=== PATIENT | male | born 1935 | race Caucasian/White ===

== ENCOUNTER → 2017-05-01 | Outpatient (CLI) | payer MEDICARE, OTHER ==
[~2017-05-01] MED LIST: ALPR0.02 PO; ATEN100T PO; BUSP5TAB2 PO; CILO100T PO; ESOM40CA PO; FINA5TAB PO; HYDR12.53 PO; LISI40TA PO; METF-86 PO; PRED10TA14 PO; SILD100T PO; SIMV80TA3 PO; TAMS0.4C2 PO; VISIPAQUE 270 MG/ML, 50ML BOTTLE ONE
== END | disposition home or self-care (01) ==
LOC: RAD 07:17 → EDSTATUS 08:00
PROVIDERS: ATTEND Urology
DX: N13.1 Hydronephrosis with ureteral stricture, not elsewhere classified (principal); N13.5 Crossing vessel and stricture of ureter without hydronephrosis; Z93.6 Other artificial openings of urinary tract status
CPT/HCPCS: 50435; C1729; C1769; Q9966

== ENCOUNTER → 2017-08-01 | Outpatient (CLI) | payer MEDICARE, OTHER ==
[~2017-08-01] MED LIST changes: +LIDOCAINE 1%, 20ML ONE; +METF-162 PO; -METF-86 PO; -VISIPAQUE 270 MG/ML, 50ML BOTTLE ONE
== END | disposition home or self-care (01) ==
LOC: RAD 07:18
PROVIDERS: ATTEND Urology
DX: N13.30 Unspecified hydronephrosis (principal); R35.0 Frequency of micturition; N13.5 Crossing vessel and stricture of ureter without hydronephrosis
CPT/HCPCS: 50435; C1729; C1769; J3490

== ENCOUNTER → 2017-10-21 | Outpatient (CLI) | payer MEDICARE, OTHER ==
[~2017-10-21] MED LIST changes: +VISIPAQUE 270 MG/ML, 50ML BOTTLE ONE
== END | disposition home or self-care (01) ==
LOC: RAD 07:49 → EDSTATUS 08:00
PROVIDERS: ATTEND Physician Assistant
DX: N39.0 Urinary tract infection, site not specified (principal); N13.30 Unspecified hydronephrosis
CPT/HCPCS: 50435; C1729; C1769; Q9966; J3490

== ENCOUNTER → 2018-01-20 | Outpatient (CLI) | payer MEDICARE, OTHER ==
[~2018-01-20] MED LIST changes: -LIDOCAINE 1%, 20ML ONE; -VISIPAQUE 270 MG/ML, 50ML BOTTLE ONE; +VISIPAQUE 320MG/ML, 50ML BOTTLE ONE
== END | disposition home or self-care (01) ==
LOC: RAD 08:45 → EDSTATUS 09:00
PROVIDERS: ATTEND Physician Assistant
DX: N13.1 Hydronephrosis with ureteral stricture, not elsewhere classified (principal); N39.0 Urinary tract infection, site not specified
CPT/HCPCS: 50435; C1729; C1769; Q9967

== ENCOUNTER 2018-02-12 19:20 | Emergency (ER) | payer MEDICARE, OTHER ==
[~2018-02-12] VITALS: Ht 175.3 cm; Wt 81.9 kg
[~2018-02-12 19:20] MED LIST changes: -VISIPAQUE 320MG/ML, 50ML BOTTLE ONE
[2018-02-12 19:58] LABS: BASOPHILS # (AUTO) 0.11 x10^3/uL (0-0.1); BASOPHILS % (AUTO) 1 % (0-1); EOSINOPHILS # (AUTO) 0.09 x10^3/uL (0-0.4); EOSINOPHILS % (AUTO) 1 % (1-7); LYMPHOCYTES # (AUTO) 1.17 x10^3/uL (1-3.4); LYMPHOCYTES % (AUTO) 10 % (22-44); MD NO; MEAN CORPUSCULAR HEMOGLOBIN 32.5 pg (27.5-34.5); MEAN CORPUSCULAR HGB CONC 34.8 g/dL (33.2-36.2); MEAN CORPUSCULAR VOLUME 93.3 fL (81-97); MEAN PLATELET VOLUME 8.3 fL (7.4-10.4); MONOCYTES # (AUTO) 1.12 x10^3/uL (0.2-0.8); MONOCYTES % (AUTO) 10 % (2-9); NEUTROPHILS # (AUTO) 9.17 x10^3/uL (1.8-6.8); NEUTROPHILS % (AUTO) 79 % (42-75); PLATELET COUNT 162 x10^3/uL (130-400)
[2018-02-12] MEDS ORDERED: IPRA4AER INH (20:08)
[2018-02-12] MEDS ORDERED: DOXA2TAB9 PO (20:08)
[2018-02-12] MEDS ORDERED: UMEC1DIS INH (20:08)
[2018-02-12] MEDS ORDERED: TAMS-11 PO (20:08)
[2018-02-12] MEDS ORDERED: HYDR-3240 PO (20:08)
[2018-02-12] MEDS ORDERED: CHOL2000 PO (20:08)
[2018-02-12] MEDS ORDERED: FLUN25SP NAS (20:08)
[2018-02-12] MEDS ORDERED: SILD100T PO (20:08)
[2018-02-12] MEDS ORDERED: OMEP40CA6 PO (20:08)
[2018-02-12] MEDS ORDERED: LISI40TA PO (20:08)
[2018-02-12 20:09] LABS: ALBUMIN 3.4 g/dL (3.4-5.0); ANION GAP 8 mmol/L (5-15); CALCIUM 8.4 mg/dL (8.5-10.1); CHLORIDE 109 mmol/L (98-107); CREATININE 1.27 mg/dL (0.7-1.3)
[2018-02-12 20:13] LABS: TROPONIN I < 0.015 ng/mL (0.000-0.045)
[2018-02-12] MEDS ORDERED: ATOR40TA PO (20:40)
[2018-02-12 21:40] VITALS: BP 164/71
== END 2018-02-12 21:52 | disposition home or self-care (01) ==
LOC: ED 21:40
DX: R42 Dizziness and giddiness (principal); I10 Essential (primary) hypertension
CPT/HCPCS: 36415; 71046; 80048; 82040; 84484; 85025; 93005; 99285

== ENCOUNTER → 2018-08-06 | Outpatient (CLI) | payer MEDICARE, OTHER ==
[~2018-08-06] MED LIST changes: +ATOR40TA PO; +CHOL2000 PO; +DOXA2TAB9 PO; +FLUN25SP NAS; +HYDR-3240 PO; +HYDR25TA11 PO; +IPRA4AER INH; +OMEP40CA6 PO; -SIMV80TA3 PO; +SIMV80TA7 PO; +TAMS-11 PO; +UMEC1DIS INH
== END | disposition home or self-care (01) ==
LOC: RAD 08:27
PROVIDERS: ATTEND Urology
DX: N13.5 Crossing vessel and stricture of ureter without hydronephrosis (principal); Z87.891 Personal history of nicotine dependence; Z88.5 Allergy status to narcotic agent; Z88.1 Allergy status to other antibiotic agents
CPT/HCPCS: 50435; C1729; C1769

== ENCOUNTER 2019-01-26 07:18 | Outpatient (CLI) | payer MEDICARE, OTHER ==
[~2019-01-26 07:18] MED LIST changes: +HYDR12.517 PO; -HYDR12.53 PO; +SIMV80TA18 PO; -SIMV80TA7 PO
[2019-01-26] MEDS ORDERED: LIDOCAINE-MPF 1%, 5ML ONE (08:06)
[2019-01-26] MEDS ORDERED: VISIPAQUE 270 MG/ML, 50ML BOTTLE ONE (08:51)
== END 2019-01-26 23:59 | disposition home or self-care (01) ==
LOC: RAD 07:18
PROVIDERS: ATTEND Physician Assistant
DX: N13.5 Crossing vessel and stricture of ureter without hydronephrosis (principal)
CPT/HCPCS: 50435; C1729; C1769; Q9966

== ENCOUNTER 2019-09-10 06:32 | Outpatient (CLI) | payer MEDICARE, OTHER ==
[~2019-09-10 06:32] MED LIST changes: +HYDR-826 PO; -HYDR25TA11 PO
== END 2019-09-10 23:59 | disposition home or self-care (01) ==
LOC: CVU 06:32
PROVIDERS: ATTEND Surgery
DX: Z01.818 Encounter for other preprocedural examination (principal); I73.9 Peripheral vascular disease, unspecified
CPT/HCPCS: 93922; 93925

== ENCOUNTER → 2019-10-27 | Outpatient (CLI) | payer MEDICARE, OTHER ==
[~2019-10-27] MED LIST changes: +OMEP40CA42 PO; -OMEP40CA6 PO
== END | disposition home or self-care (01) ==
LOC: RAD 07:54 → EDSTATUS 08:00
PROVIDERS: ATTEND Physician Assistant
DX: N13.5 Crossing vessel and stricture of ureter without hydronephrosis (principal)
CPT/HCPCS: 50435; C1729; C1769

== ENCOUNTER 2020-02-10 09:51 | Outpatient (CLI) | payer MEDICARE, OTHER ==
[2020-02-10] MEDS ORDERED: VISIPAQUE 270 MG/ML, 50ML BOTTLE ONE (10:36)
== END 2020-02-10 23:59 | disposition home or self-care (01) ==
LOC: RAD 09:51
PROVIDERS: ATTEND Physician Assistant
DX: T83.092A Other mechanical complication of nephrostomy catheter, initial encounter (principal); N13.5 Crossing vessel and stricture of ureter without hydronephrosis; Y83.8 Other surgical procedures as the cause of abnormal reaction of the patient, or of later complication, without mention of misadventure at the time of the procedure
CPT/HCPCS: 50435; C1729; C1769; Q9966

== ENCOUNTER 2020-05-15 11:30 | Inpatient (IN) | payer MEDICARE, OTHER ==
[~2020-05-15] VITALS: Ht 170.2 cm; Wt 72.0 kg
[2020-05-15] MEDS ORDERED: methylPREDNISolone SOD SUCC 125 MG/2 ML ONE (12:29)
[2020-05-15] MEDS ORDERED: NITROGLYCERIN OINT 2%, 1GM TP ONE ×2 (12:30→12:31)
[2020-05-15] MEDS ORDERED: methylPREDNISolone SOD SUCC 125 MG/2 ML IV ONE (12:30)
[2020-05-15] MEDS ORDERED: NITROGLYCERIN SINGLE TAB 0.4 MG SL ONE (12:31)
[2020-05-15 12:35] LABS: BASOPHILS # (AUTO) 0.41 x10^3/uL (0-0.1); BASOPHILS % (AUTO) 4 % (0-1); EOSINOPHILS # (AUTO) 0.08 x10^3/uL (0-0.4); EOSINOPHILS % (AUTO) 1 % (1-7); LYMPHOCYTES # (AUTO) 1.34 x10^3/uL (1-3.4); LYMPHOCYTES % (AUTO) 12 % (22-44); MD NO; MEAN CORPUSCULAR HEMOGLOBIN 28.8 pg (27.5-34.5); MEAN CORPUSCULAR HGB CONC 32.6 g/dL (33.2-36.2); MEAN CORPUSCULAR VOLUME 88.2 fL (81-97); MEAN PLATELET VOLUME 8.1 fL (7.4-10.4); MONOCYTES # (AUTO) 0.44 x10^3/uL (0.2-0.8); MONOCYTES % (AUTO) 4 % (2-9); NEUTROPHILS # (AUTO) 8.75 x10^3/uL (1.8-6.8); NEUTROPHILS % (AUTO) 79 % (42-75); PLATELET COUNT 242 x10^3/uL (130-400); RED BLOOD COUNT 4.11 x10^6/uL (4.38-5.82); RED CELL DISTRIBUTION WIDTH 16.7 % (9.4-14.8)
[2020-05-15 12:45] LABS: ALBUMIN 2.8 g/dL (3.4-5.0); ANION GAP 4 mmol/L (5-15); CALCIUM 8.6 mg/dL (8.5-10.1); CHLORIDE 109 mmol/L (98-107); CREATININE 1.27 mg/dL (0.7-1.3)
[2020-05-15] MEDS: NITROGLYCERIN SINGLE TAB 0.4 MG SL PRN (12:45)
[2020-05-15 12:49] LABS: TROPONIN I 0.109 ng/mL (0.000-0.045)
--- NOTE | 2020-05-15 12:57 | NUR ---
PT MEDICATED PER EMAR. CONNECTED TO ALL MONITORING, PT CONVERSING W/O DIFFICULTY. AT BEDSIDE FOR RECHECK.
[2020-05-15] MEDS ORDERED: ADENOSINE 6 MG/2 ML ONE (13:03)
[2020-05-15] MEDS ORDERED: DILTIAZEM 125 MG in SODIUM CHLORIDE 0.9% 100 ML IV SCH (13:11)
[2020-05-15] MEDS ORDERED: DILTIAZEM 5 MG/ML, 5ML ONE (13:11)
--- NOTE | 2020-05-15 13:22 | NUR ---
AT BEDSIDE. CRASH CART IN ROOM. PADS PLACED ON PT. AMIODARONE DRIPO ORDERED FROM PHARM PER VERBAL ORDER. NITRO DRIP VERBAL FROM
[2020-05-15] MEDS ORDERED: NITROGLYCERIN/D5W PMX 250 ML ONE (13:23)
--- NOTE | 2020-05-15 13:24 | NUR ---
PER MD NITRO DRIP INITIATED TO ACHIEVE SYSTOLIC BP OF 120 TO 140
[2020-05-15] MEDS ORDERED: DILTIAZEM 5 MG/ML, 5ML IV ONE (13:30)
[2020-05-15] MEDS ORDERED: FILTER 0.22 MICRON IV PRN ×2 (13:30→15:30)
[2020-05-15] MEDS ORDERED: ADENOSINE 6 MG/2 ML IVPush ONE (13:30)
[2020-05-15] MEDS ORDERED: AMIODARONE 450 MG in DEXTROSE 5% 241 ML IV PRN ×3 (13:30→15:12)
--- NOTE | 2020-05-15 13:49 | NUR ---
PER MD ORDER NITRO TO BE INITIATED AT 20 MCG
--- NOTE | 2020-05-15 13:50 | NUR ---
MD AT BEDSIDE INCREASE NITRO TO 50 MCG
[2020-05-15] MEDS ORDERED: FUROSEMIDE 40 MG/4 ML ONE (13:52)
--- NOTE | 2020-05-15 13:57 | NUR ---
TRAMAINE CABALLERO NUMBER [id number]. CELL [phone]
[2020-05-15] MEDS ORDERED: NITROGLYCERIN/D5W PMX 250 ML IV PRN ×2 (14:00→17:00)
[2020-05-15] MEDS ORDERED: FILTER 0.22 MICRON FOR AMIODARONE IV PRN (14:00)
[2020-05-15] MEDS ORDERED: AMIODARONE 150 MG in DEXTROSE 5% 97 ML IV ONE (14:00)
[2020-05-15] MEDS ORDERED: FUROSEMIDE 20 MG/2 ML IV ONE (14:00)
--- NOTE | 2020-05-15 14:14 | NUR ---
MD AT BEDSIDE. VERBAL ORDER TO INCREASE NITRO TO 85 MCG
[2020-05-15] MEDS ORDERED: ONDANSETRON 2MG/ML, 2ML IVPush PRN (15:00)
[2020-05-15] MEDS ORDERED: HYDROcodone/APAP 5/325 TABLET PO PRN (15:00)
[2020-05-15] MEDS ORDERED: BISACODYL 10 MG SUPP PR PRN (15:00)
[2020-05-15] MEDS ORDERED: POLYETHYLENE GLYCOL 17 GM PACKET PO PRN (15:00)
[2020-05-15] MEDS ORDERED: ENALAPRILAT 1.25 MG/ML, 2ML IVPush PRN (15:00)
[2020-05-15] MEDS ORDERED: ACETAMINOPHEN 325 MG TABLET PO PRN (15:00)
[2020-05-15] MEDS ORDERED: LABETALOL 5MG/ML, 20ML IVPush PRN (15:00)
[2020-05-15] MEDS ORDERED: FUROSEMIDE 40 MG/4 ML IV ONE (15:42)
[2020-05-15] MEDS ORDERED: AMIODARONE 150 MG in DEXTROSE 5% 97 ML IVPB ONE (15:45)
[2020-05-15] MEDS ORDERED: IPRATROPIUM 0.5 MG/2.5 ML INHA NPPB PRN (16:00)
[2020-05-15] MEDS ORDERED: ALBUTEROL/IPRATROPIUM 2.5MG/0.5MG, 3 ML NPPB PRN (16:00)
[2020-05-15] MEDS: ENOXAPARIN 40 MG/0.4 ML SQ SCH (16:21)
[2020-05-15] MEDS ORDERED: AMIODARONE 50 MG/ML, 3ML ONE (18:03)
[2020-05-15 18:42] LABS: TROPONIN I 0.156 ng/mL (0.000-0.045)
[2020-05-15] MEDS ORDERED: MAGNESIUM SULFATE PMX 2GM/50ML 50 ML IV ONE (19:30)
[2020-05-15] MEDS: CILOSTAZOL 100 MG TABLET PO SCH (20:41)
[2020-05-15] MEDS: ATORVASTATIN 40 MG TABLET PO SCH (20:41)
[2020-05-16 01:31] LABS: TROPONIN I 0.116 ng/mL (0.000-0.045)
[2020-05-16 04:44] LABS: BASOPHILS # (AUTO) 0.07 x10^3/uL (0-0.1); BASOPHILS % (AUTO) 1 % (0-1); EOSINOPHILS # (AUTO) 0.03 x10^3/uL (0-0.4); EOSINOPHILS % (AUTO) 0 % (1-7); LYMPHOCYTES # (AUTO) 0.67 x10^3/uL (1-3.4); LYMPHOCYTES % (AUTO) 8 % (22-44); MD NO; MEAN CORPUSCULAR HEMOGLOBIN 28.5 pg (27.5-34.5); MEAN CORPUSCULAR HGB CONC 32.2 g/dL (33.2-36.2); MEAN CORPUSCULAR VOLUME 88.6 fL (81-97); MEAN PLATELET VOLUME 8.7 fL (7.4-10.4); MONOCYTES # (AUTO) 0.22 x10^3/uL (0.2-0.8); MONOCYTES % (AUTO) 3 % (2-9); NEUTROPHILS # (AUTO) 7.71 x10^3/uL (1.8-6.8); NEUTROPHILS % (AUTO) 89 % (42-75); PLATELET COUNT 275 x10^3/uL (130-400); RED BLOOD COUNT 4.17 x10^6/uL (4.38-5.82); RED CELL DISTRIBUTION WIDTH 16.5 % (9.4-14.8)
[2020-05-16 04:55] LABS: ALANINE AMINOTRANSFERASE 17 U/L (12-78); ALBUMIN 2.8 g/dL (3.4-5.0); ANION GAP 8 mmol/L (5-15); CHLORIDE 102 mmol/L (98-107); CREATININE 1.43 mg/dL (0.7-1.3)
[2020-05-16 04:59] LABS: ALKALINE PHOSPHATASE 74 U/L (45-117); CALCIUM 8.5 mg/dL (8.5-10.1); TOTAL PROTEIN 6.3 g/dL (6.4-8.2)
[2020-05-16] MEDS ORDERED: OMEPRAZOLE 20 MG CAPSULE.DR PO SCH (06:00)
[2020-05-16] MEDS ORDERED: ALBUTEROL-IPRATROPIUM MDI INH INH PRN (07:00)
[2020-05-16] MEDS: FINASTERIDE 5 MG TABLET PO SCH (07:28)
[2020-05-16] MEDS: SENNA/DOCUSATE TABLET PO SCH (07:29)
[2020-05-16] MEDS: CHOLECALCIFEROL 1,000 UNIT TABLET PO SCH (07:29)
[2020-05-16] MEDS: DOXAZOSIN 2MG TABLET PO SCH (07:29)
[2020-05-16] MEDS: TAMSULOSIN 0.4 MG CAP.ER.24H PO SCH (07:29)
[2020-05-16] MEDS: BUSPIRONE 5 MG TABLET PO SCH (07:29)
[2020-05-16] MEDS: CILOSTAZOL 100 MG TABLET PO SCH ×2 (07:29→20:28)
[2020-05-16] MEDS: OMEPRAZOLE 20 MG CAPSULE.DR PO SCH (07:35)
[2020-05-16] MEDS: LISINOPRIL 40 MG TABLET PO SCH (07:35)
[2020-05-16 08:25] VITALS: BP 116/73
[2020-05-16] MEDS: FLUNISOLIDE HOMETP SCH (09:00)
[2020-05-16] MEDS ORDERED: ATENOLOL 50 MG TABLET ONE (11:05)
[2020-05-16] MEDS: FUROSEMIDE 20 MG/2 ML IV SCH ×2 (11:21→17:38)
[2020-05-16] MEDS: ATENOLOL 100 MG TABLET PO SCH (11:22)
[2020-05-16 13:13] VITALS: BP 95/63
[2020-05-16] MEDS ORDERED: METOLAZONE 5 MG TABLET PO ONE (13:30)
[2020-05-16] MEDS ORDERED: MULTIVITAMINS/MINERALS TABLET PO ONE (14:09)
[2020-05-16] MEDS ORDERED: FUROSEMIDE 40 MG/4 ML ONE (14:21)
[2020-05-16] MEDS ORDERED: methylPREDNISolone SOD SUCC 125 MG/2 ML ONE (14:24)
[2020-05-16] MEDS ORDERED: methylPREDNISolone SOD SUCC 125 MG/2 ML IVPush ONE (15:00)
[2020-05-16] MEDS ORDERED: FUROSEMIDE 100 MG/10 ML IV ONE (15:00)
[2020-05-16] MEDS: ENOXAPARIN 40 MG/0.4 ML SQ SCH (15:11)
[2020-05-16] MEDS ORDERED: ALBUTEROL SULFATE 2.5 MG/3 ML NPPB PRN (15:30)
[2020-05-16 17:19] LABS: ALBUMIN 2.7 g/dL (3.4-5.0); ANION GAP 4 mmol/L (5-15); CALCIUM 8.4 mg/dL (8.5-10.1); CHLORIDE 102 mmol/L (98-107)
[2020-05-16 17:25] LABS: ALANINE AMINOTRANSFERASE 27 U/L (12-78); ALKALINE PHOSPHATASE 83 U/L (45-117); CREATININE 1.84 mg/dL (0.7-1.3); TROPONIN I 0.131 ng/mL (0.000-0.045)
[2020-05-16 18:09] LABS: MICROSCOPIC AUTO
[2020-05-16] MEDS: ALBUTEROL/IPRATROPIUM 2.5MG/0.5MG, 3 ML IPPB SCH ×2 (18:36→22:27)
[2020-05-16] MEDS: methylPREDNISolone SOD SUCC 125 MG/2 ML IVPush SCH (20:28)
[2020-05-16] MEDS: ATORVASTATIN 40 MG TABLET PO SCH (20:28)
[2020-05-16] MEDS ORDERED: BUDESONIDE 0.5 MG/2 ML INHA IPPB SCH (21:00)
[2020-05-16] MEDS: ALBUTEROL/IPRATROPIUM 2.5MG/0.5MG, 3 ML NPPB SCH (23:00)
[2020-05-17] MEDS: ALBUTEROL/IPRATROPIUM 2.5MG/0.5MG, 3 ML NPPB SCH ×6 (03:00→22:43)
[2020-05-17] MEDS: methylPREDNISolone SOD SUCC 125 MG/2 ML IVPush SCH ×4 (03:40→20:10)
[2020-05-17 03:52] LABS: ANION GAP 8 mmol/L (5-15); CHLORIDE 103 mmol/L (98-107); CREATININE 1.85 mg/dL (0.7-1.3)
[2020-05-17 03:54] LABS: BASOPHILS # (AUTO) 0.08 x10^3/uL (0-0.1); BASOPHILS % (AUTO) 1 % (0-1); EOSINOPHILS % (AUTO) 0 % (1-7); LYMPHOCYTES # (AUTO) 0.54 x10^3/uL (1-3.4); LYMPHOCYTES % (AUTO) 7 % (22-44); MD NO; MEAN CORPUSCULAR HGB CONC 32.9 g/dL (33.2-36.2); MEAN CORPUSCULAR VOLUME 87.9 fL (81-97); MEAN PLATELET VOLUME 8.7 fL (7.4-10.4); MONOCYTES # (AUTO) 0.13 x10^3/uL (0.2-0.8); MONOCYTES % (AUTO) 2 % (2-9); NEUTROPHILS # (AUTO) 6.57 x10^3/uL (1.8-6.8); NEUTROPHILS % (AUTO) 90 % (42-75); PLATELET COUNT 201 x10^3/uL (130-400); RED BLOOD COUNT 3.84 x10^6/uL (4.38-5.82); RED CELL DISTRIBUTION WIDTH 16.8 % (9.4-14.8)
[2020-05-17 04:00] VITALS: BP 104/60
[2020-05-17] MEDS: OMEPRAZOLE 20 MG CAPSULE.DR PO SCH (06:21)
[2020-05-17] MEDS: BUDESONIDE 0.5 MG/2 ML INHA NPPB SCH ×2 (07:20→19:14)
[2020-05-17] MEDS: FUROSEMIDE 20 MG/2 ML IV SCH ×2 (09:05→15:34)
[2020-05-17] MEDS: DOXAZOSIN 2MG TABLET PO SCH (09:06)
[2020-05-17] MEDS: CHOLECALCIFEROL 1,000 UNIT TABLET PO SCH (09:06)
[2020-05-17] MEDS: CILOSTAZOL 100 MG TABLET PO SCH ×2 (09:06→20:10)
[2020-05-17] MEDS: BUSPIRONE 5 MG TABLET PO SCH (09:06)
[2020-05-17] MEDS: SENNA/DOCUSATE TABLET PO SCH (09:06)
[2020-05-17] MEDS: FLUNISOLIDE HOMETP SCH (09:07)
[2020-05-17] MEDS: ATENOLOL 100 MG TABLET PO SCH (09:07)
[2020-05-17] MEDS: LISINOPRIL 40 MG TABLET PO SCH (09:07)
[2020-05-17] MEDS: TAMSULOSIN 0.4 MG CAP.ER.24H PO SCH (09:07)
[2020-05-17] MEDS: FINASTERIDE 5 MG TABLET PO SCH (09:15)
[2020-05-17] MEDS ORDERED: CHLOROTHIAZIDE 500 MG IV ONE (15:30)
[2020-05-17] MEDS ORDERED: ENOXAPARIN 30 MG/0.3 ML SQ SCH (16:00)
[2020-05-17] MEDS: CEFTRIAXONE PMX 1GM/50ML 50 ML IV SCH (20:10)
[2020-05-17] MEDS: ATORVASTATIN 40 MG TABLET PO SCH (20:10)
[2020-05-18] MEDS: methylPREDNISolone SOD SUCC 125 MG/2 ML IVPush SCH ×2 (02:59→09:21)
[2020-05-18] MEDS: OMEPRAZOLE 20 MG CAPSULE.DR PO SCH (03:01)
[2020-05-18] MEDS: ALBUTEROL/IPRATROPIUM 2.5MG/0.5MG, 3 ML NPPB SCH ×3 (03:31→10:00)
[2020-05-18 04:00] VITALS: BP 109/74
[2020-05-18 04:45] LABS: ANION GAP 6 mmol/L (5-15); CALCIUM 8.3 mg/dL (8.5-10.1); CHLORIDE 98 mmol/L (98-107)
[2020-05-18 04:50] LABS: CREATININE 2.29 mg/dL (0.7-1.3)
[2020-05-18] MEDS: BUDESONIDE 0.5 MG/2 ML INHA NPPB SCH (06:37)
[2020-05-18] MEDS: FLUNISOLIDE HOMETP SCH (09:00)
[2020-05-18] MEDS: DOXAZOSIN 2MG TABLET PO SCH (09:22)
[2020-05-18] MEDS: CHOLECALCIFEROL 1,000 UNIT TABLET PO SCH (09:22)
[2020-05-18] MEDS: FINASTERIDE 5 MG TABLET PO SCH (09:22)
[2020-05-18] MEDS: BUSPIRONE 5 MG TABLET PO SCH (09:22)
[2020-05-18] MEDS: CILOSTAZOL 100 MG TABLET PO SCH ×2 (09:22→22:08)
[2020-05-18] MEDS: TAMSULOSIN 0.4 MG CAP.ER.24H PO SCH (09:22)
[2020-05-18] MEDS: FUROSEMIDE 20 MG/2 ML IV SCH (09:22)
[2020-05-18] MEDS: SENNA/DOCUSATE TABLET PO SCH (09:24)
[2020-05-18] MEDS: ALBUTEROL-IPRATROPIUM MDI INH INH SCH ×3 (14:00→23:00)
[2020-05-18] MEDS: methylPREDNISolone SOD SUCC 40 MG/ML IVPush SCH (16:21)
[2020-05-18 18:53] VITALS: BP 116/75
[2020-05-18] MEDS: CEFTRIAXONE PMX 1GM/50ML 50 ML IV SCH (22:08)
[2020-05-18] MEDS: ATORVASTATIN 40 MG TABLET PO SCH (22:08)
[2020-05-19 01:00] VITALS: BP 110/64
[2020-05-19] MEDS: methylPREDNISolone SOD SUCC 40 MG/ML IVPush SCH ×2 (01:06→09:30)
[2020-05-19] MEDS: ALBUTEROL-IPRATROPIUM MDI INH INH SCH ×5 (03:00→21:25)
[2020-05-19] MEDS: HEPARIN 5,000 UNITS/ML, 1ML SQ SCH ×3 (05:49→21:25)
[2020-05-19] MEDS: OMEPRAZOLE 20 MG CAPSULE.DR PO SCH (05:49)
[2020-05-19 05:51] LABS: BASOPHILS # (AUTO) 0.02 x10^3/uL (0-0.1); BASOPHILS % (AUTO) 0 % (0-1); EOSINOPHILS % (AUTO) 0 % (1-7); LYMPHOCYTES % (AUTO) 3 % (22-44); MD NO; MEAN CORPUSCULAR VOLUME 87.7 fL (81-97); MEAN PLATELET VOLUME 9.2 fL (7.4-10.4); MONOCYTES # (AUTO) 0.33 x10^3/uL (0.2-0.8); MONOCYTES % (AUTO) 4 % (2-9); NEUTROPHILS # (AUTO) 8.66 x10^3/uL (1.8-6.8); NEUTROPHILS % (AUTO) 93 % (42-75); PLATELET COUNT 208 x10^3/uL (130-400); RED BLOOD COUNT 3.72 x10^6/uL (4.38-5.82); RED CELL DISTRIBUTION WIDTH 16.8 % (9.4-14.8)
[2020-05-19 06:00] LABS: ANION GAP 6 mmol/L (5-15); CALCIUM 8.4 mg/dL (8.5-10.1); CHLORIDE 98 mmol/L (98-107); CREATININE 2.35 mg/dL (0.7-1.3)
[2020-05-19] MEDS: FLUNISOLIDE HOMETP SCH (07:51)
[2020-05-19] MEDS: ALBUMIN HUMAN 25% 100 ML IV SCH (07:58)
[2020-05-19 08:04] VITALS: BP 126/72
[2020-05-19] MEDS: SENNA/DOCUSATE TABLET PO SCH (08:13)
[2020-05-19] MEDS ORDERED: FUROSEMIDE 20 MG/2 ML IV SCH (09:00)
[2020-05-19] MEDS: CILOSTAZOL 100 MG TABLET PO SCH ×2 (09:29→21:26)
[2020-05-19] MEDS: BUSPIRONE 5 MG TABLET PO SCH (09:29)
[2020-05-19] MEDS: CHOLECALCIFEROL 1,000 UNIT TABLET PO SCH (09:29)
[2020-05-19] MEDS: TAMSULOSIN 0.4 MG CAP.ER.24H PO SCH (09:29)
[2020-05-19] MEDS: FINASTERIDE 5 MG TABLET PO SCH (09:30)
[2020-05-19] MEDS: DOXAZOSIN 2MG TABLET PO SCH (09:30)
[2020-05-19 12:13] VITALS: BP 131/74
[2020-05-19] MEDS: FLUTICASONE FUROATE 100MCG/INH INH SCH (17:36)
[2020-05-19] MEDS: METOPROLOL TARTRATE 25 MG TAB PO SCH (17:37)
[2020-05-19 19:13] VITALS: BP 122/64
[2020-05-19] MEDS: CEFTRIAXONE PMX 1GM/50ML 50 ML IV SCH (21:26)
[2020-05-19] MEDS: ATORVASTATIN 40 MG TABLET PO SCH (21:26)
[2020-05-19 22:18] LABS: MICROSCOPIC AUTO
[2020-05-19 22:24] LABS: CHLORIDE,URINE RANDOM 35 mmol/L; POTASSIUM,URINE RANDOM 12 mmol/L; SODIUM,URINE RANDOM 41 mmol/L
[2020-05-19 22:27] LABS: CREATININE,URINE RANDOM 43.4 mg/dL
[2020-05-20] MEDS: ALBUTEROL-IPRATROPIUM MDI INH INH SCH ×7 (00:31→23:39)
[2020-05-20 01:20] VITALS: BP 118/70
[2020-05-20 05:16] LABS: BASOPHILS % (AUTO) 0 % (0-1); EOSINOPHILS # (AUTO) 0.08 x10^3/uL (0-0.4); EOSINOPHILS % (AUTO) 1 % (1-7); LYMPHOCYTES # (AUTO) 0.74 x10^3/uL (1-3.4); LYMPHOCYTES % (AUTO) 10 % (22-44); MD NO; MEAN CORPUSCULAR HEMOGLOBIN 28.9 pg (27.5-34.5); MEAN CORPUSCULAR HGB CONC 33.2 g/dL (33.2-36.2); MEAN CORPUSCULAR VOLUME 87.2 fL (81-97); MEAN PLATELET VOLUME 8.9 fL (7.4-10.4); MONOCYTES # (AUTO) 0.67 x10^3/uL (0.2-0.8); MONOCYTES % (AUTO) 9 % (2-9); NEUTROPHILS # (AUTO) 5.96 x10^3/uL (1.8-6.8); NEUTROPHILS % (AUTO) 80 % (42-75); PLATELET COUNT 181 x10^3/uL (130-400); RED BLOOD COUNT 3.56 x10^6/uL (4.38-5.82); RED CELL DISTRIBUTION WIDTH 16.9 % (9.4-14.8)
[2020-05-20 05:28] LABS: ALBUMIN 2.6 g/dL (3.4-5.0); ANION GAP 5 mmol/L (5-15); CALCIUM 8.5 mg/dL (8.5-10.1); CHLORIDE 101 mmol/L (98-107)
[2020-05-20 05:32] LABS: % IRON SATURATION 6 % (20-55); ALANINE AMINOTRANSFERASE 21 U/L (12-78); ALKALINE PHOSPHATASE 52 U/L (45-117); BILIRUBIN,TOTAL 0.3 mg/dL (0.2-1.0); CREATININE 1.84 mg/dL (0.7-1.3); IRON LEVEL 18 mcg/dL (65-175); TOTAL IRON BINDING CAPACITY 280 mcg/dL (250-450); TOTAL PROTEIN 5.6 g/dL (6.4-8.2)
[2020-05-20] MEDS: HEPARIN 5,000 UNITS/ML, 1ML SQ SCH ×2 (05:56→14:00)
[2020-05-20] MEDS: METOPROLOL TARTRATE 25 MG TAB PO SCH ×2 (05:57→17:19)
[2020-05-20] MEDS: OMEPRAZOLE 20 MG CAPSULE.DR PO SCH (05:57)
[2020-05-20 06:01] VITALS: BP 132/79
[2020-05-20 06:21] VITALS: BP 137/75
[2020-05-20] MEDS ORDERED: REGADENOSON 0.4 MG/5 ML SYRINGE ONE (07:53)
[2020-05-20] MEDS: FLUTICASONE FUROATE 100MCG/INH INH SCH (09:00)
[2020-05-20] MEDS: ALBUMIN HUMAN 25% 100 ML IV SCH (09:00)
[2020-05-20] MEDS: FLUNISOLIDE HOMETP SCH (09:00)
[2020-05-20] MEDS: SENNA/DOCUSATE TABLET PO SCH (11:27)
[2020-05-20] MEDS: DOXAZOSIN 2MG TABLET PO SCH (11:27)
[2020-05-20] MEDS: CHOLECALCIFEROL 1,000 UNIT TABLET PO SCH (11:28)
[2020-05-20] MEDS: TAMSULOSIN 0.4 MG CAP.ER.24H PO SCH (11:28)
[2020-05-20] MEDS: BUSPIRONE 5 MG TABLET PO SCH (11:28)
[2020-05-20] MEDS: CILOSTAZOL 100 MG TABLET PO SCH ×2 (11:28→20:05)
[2020-05-20] MEDS: FINASTERIDE 5 MG TABLET PO SCH (11:29)
[2020-05-20 12:37] VITALS: BP 119/66
[2020-05-20] MEDS ORDERED: HEPARIN 5,000 UNITS/ML, 1ML IV ONE (15:00)
[2020-05-20] MEDS: HEPARIN 25,000 UNITS/250ML PMX 250 ML IV PRN (15:55)
[2020-05-20 15:56] VITALS: BP 143/75
[2020-05-20 20:02] VITALS: BP 133/76
[2020-05-20] MEDS: ATORVASTATIN 40 MG TABLET PO SCH (20:05)
[2020-05-21] MEDS: HEPARIN 5,000 UNITS/ML, 1ML IV PRN ×3 (00:37→21:42)
[2020-05-21] MEDS: ALBUTEROL-IPRATROPIUM MDI INH INH SCH ×6 (03:21→23:00)
[2020-05-21 03:22] VITALS: BP 149/70
[2020-05-21] MEDS: METOPROLOL TARTRATE 25 MG TAB PO SCH (06:04)
[2020-05-21] MEDS: OMEPRAZOLE 20 MG CAPSULE.DR PO SCH (06:04)
[2020-05-21 06:39] VITALS: BP 156/79
[2020-05-21 07:06] LABS: ANION GAP 4 mmol/L (5-15); CALCIUM 8.6 mg/dL (8.5-10.1); CHLORIDE 105 mmol/L (98-107); CREATININE 1.56 mg/dL (0.7-1.3)
[2020-05-21] MEDS: CILOSTAZOL 100 MG TABLET PO SCH ×2 (08:36→21:43)
[2020-05-21] MEDS: FINASTERIDE 5 MG TABLET PO SCH (08:36)
[2020-05-21] MEDS: TAMSULOSIN 0.4 MG CAP.ER.24H PO SCH (08:37)
[2020-05-21] MEDS: CHOLECALCIFEROL 1,000 UNIT TABLET PO SCH (08:37)
[2020-05-21] MEDS: BUSPIRONE 5 MG TABLET PO SCH (08:37)
[2020-05-21] MEDS: FUROSEMIDE 20 MG TABLET PO SCH (08:37)
[2020-05-21] MEDS: DOXAZOSIN 2MG TABLET PO SCH (08:37)
[2020-05-21] MEDS: SENNA/DOCUSATE TABLET PO SCH (08:38)
[2020-05-21] MEDS: FLUNISOLIDE HOMETP SCH (08:39)
[2020-05-21] MEDS: FLUTICASONE FUROATE 100MCG/INH INH SCH (09:00)
[2020-05-21 13:42] VITALS: BP 130/61
[2020-05-21] MEDS: HEPARIN 25,000 UNITS/250ML PMX 250 ML IV PRN (17:26)
[2020-05-21 17:28] VITALS: BP 155/78
[2020-05-21] MEDS: METOPROLOL TARTRATE 50 MG TAB PO SCH (17:46)
[2020-05-21 19:40] VITALS: BP 133/74
[2020-05-21] MEDS: ATORVASTATIN 40 MG TABLET PO SCH (21:43)
[2020-05-22] VITALS (7 sets, daily range): BP systolic 111–180; BP diastolic 53–85
[2020-05-22] MEDS: ALBUTEROL-IPRATROPIUM MDI INH INH SCH ×6 (03:00→22:45)
[2020-05-22] MEDS: OMEPRAZOLE 20 MG CAPSULE.DR PO SCH (05:39)
[2020-05-22] MEDS: METOPROLOL TARTRATE 50 MG TAB PO SCH ×2 (05:39→18:26)
[2020-05-22] MEDS: HEPARIN 5,000 UNITS/ML, 1ML IV PRN (06:17)
[2020-05-22 07:22] LABS: ANION GAP 3 mmol/L (5-15); CALCIUM 8.6 mg/dL (8.5-10.1); CHLORIDE 101 mmol/L (98-107); CREATININE 1.28 mg/dL (0.7-1.3)
[2020-05-22] MEDS: AMLODIPINE 5 MG TABLET PO SCH (08:38)
[2020-05-22] MEDS: FINASTERIDE 5 MG TABLET PO SCH (08:38)
[2020-05-22] MEDS: CHOLECALCIFEROL 1,000 UNIT TABLET PO SCH (08:38)
[2020-05-22] MEDS: TAMSULOSIN 0.4 MG CAP.ER.24H PO SCH (08:39)
[2020-05-22] MEDS: CILOSTAZOL 100 MG TABLET PO SCH ×2 (08:39→21:30)
[2020-05-22] MEDS: BUSPIRONE 5 MG TABLET PO SCH (08:39)
[2020-05-22] MEDS: DOXAZOSIN 2MG TABLET PO SCH (08:39)
[2020-05-22] MEDS: FUROSEMIDE 20 MG TABLET PO SCH (08:39)
[2020-05-22] MEDS: FLUTICASONE FUROATE 100MCG/INH INH SCH (08:40)
[2020-05-22] MEDS: SENNA/DOCUSATE TABLET PO SCH (08:40)
[2020-05-22] MEDS: FLUNISOLIDE HOMETP SCH (09:00)
[2020-05-22] MEDS: POTASSIUM CHLORIDE 20 MEQ TAB.ER.PRT PO SCH (13:46)
[2020-05-22] MEDS: FUROSEMIDE 40 MG/4 ML IV SCH (13:56)
[2020-05-22] MEDS: HEPARIN 25,000 UNITS/250ML PMX 250 ML IV PRN (16:29)
[2020-05-22] MEDS: ATORVASTATIN 40 MG TABLET PO SCH (21:29)
[2020-05-23] VITALS (8 sets, daily range): BP systolic 91–140; BP diastolic 51–85
[2020-05-23] MEDS ORDERED: FUROSEMIDE 40 MG/4 ML IV STA (01:47)
[2020-05-23] MEDS ORDERED: POTASSIUM CHLORIDE 20 MEQ TAB.ER.PRT PO ONE (02:00)
[2020-05-23] MEDS: ALBUTEROL-IPRATROPIUM MDI INH INH SCH ×6 (03:00→23:00)
[2020-05-23 05:07] LABS: ANION GAP 3 mmol/L (5-15); CALCIUM 8.6 mg/dL (8.5-10.1); CHLORIDE 100 mmol/L (98-107)
[2020-05-23] MEDS: OMEPRAZOLE 20 MG CAPSULE.DR PO SCH (05:37)
[2020-05-23] MEDS: METOPROLOL TARTRATE 50 MG TAB PO SCH ×2 (05:38→18:26)
[2020-05-23] MEDS: SENNA/DOCUSATE TABLET PO SCH (07:43)
[2020-05-23] MEDS: FLUNISOLIDE HOMETP SCH (07:44)
[2020-05-23] MEDS: CILOSTAZOL 100 MG TABLET PO SCH ×2 (08:05→20:12)
[2020-05-23] MEDS: BUSPIRONE 5 MG TABLET PO SCH (08:22)
[2020-05-23] MEDS: TAMSULOSIN 0.4 MG CAP.ER.24H PO SCH (08:22)
[2020-05-23] MEDS: DOXAZOSIN 2MG TABLET PO SCH (08:23)
[2020-05-23] MEDS: CHOLECALCIFEROL 1,000 UNIT TABLET PO SCH (08:23)
[2020-05-23] MEDS: POTASSIUM CHLORIDE 20 MEQ TAB.ER.PRT PO SCH (08:23)
[2020-05-23] MEDS: AMLODIPINE 5 MG TABLET PO SCH (08:23)
[2020-05-23] MEDS: FUROSEMIDE 40 MG/4 ML IV SCH (08:24)
[2020-05-23] MEDS: FLUTICASONE FUROATE 100MCG/INH INH SCH (08:25)
[2020-05-23] MEDS: FINASTERIDE 5 MG TABLET PO SCH (08:44)
[2020-05-23] MEDS: HEPARIN 25,000 UNITS/250ML PMX 250 ML IV PRN (15:09)
[2020-05-23] MEDS: ATORVASTATIN 40 MG TABLET PO SCH (20:12)
[2020-05-24 00:09] VITALS: BP 118/72
[2020-05-24] MEDS: ALBUTEROL-IPRATROPIUM MDI INH INH SCH ×7 (04:30→23:00)
[2020-05-24 05:24] VITALS: BP 130/77
[2020-05-24] MEDS: OMEPRAZOLE 20 MG CAPSULE.DR PO SCH (05:25)
[2020-05-24] MEDS: METOPROLOL TARTRATE 50 MG TAB PO SCH ×2 (05:25→18:35)
[2020-05-24 05:42] LABS: ALBUMIN 2.7 g/dL (3.4-5.0); ANION GAP 7 mmol/L (5-15); CALCIUM 8.4 mg/dL (8.5-10.1); CHLORIDE 101 mmol/L (98-107)
[2020-05-24 05:45] LABS: CREATININE 1.59 mg/dL (0.7-1.3)
[2020-05-24 07:39] VITALS: BP 136/75
[2020-05-24] MEDS: FLUTICASONE FUROATE 100MCG/INH INH SCH (09:00)
[2020-05-24] MEDS ORDERED: FUROSEMIDE 40 MG/4 ML IV SCH (09:00)
[2020-05-24] MEDS: SENNA/DOCUSATE TABLET PO SCH (09:00)
[2020-05-24] MEDS: FLUNISOLIDE HOMETP SCH (09:00)
[2020-05-24] MEDS: CHOLECALCIFEROL 1,000 UNIT TABLET PO SCH (09:35)
[2020-05-24] MEDS: POTASSIUM CHLORIDE 20 MEQ TAB.ER.PRT PO SCH (09:35)
[2020-05-24] MEDS: DOXAZOSIN 2MG TABLET PO SCH (09:36)
[2020-05-24] MEDS: CILOSTAZOL 100 MG TABLET PO SCH ×2 (09:36→21:17)
[2020-05-24] MEDS: FINASTERIDE 5 MG TABLET PO SCH (09:36)
[2020-05-24] MEDS: BUSPIRONE 5 MG TABLET PO SCH (09:36)
[2020-05-24] MEDS: TAMSULOSIN 0.4 MG CAP.ER.24H PO SCH (09:36)
[2020-05-24] MEDS: HEPARIN 25,000 UNITS/250ML PMX 250 ML IV PRN (11:45)
[2020-05-24 14:15] VITALS: BP 130/77
[2020-05-24] MEDS ORDERED: MIDAZOLAM 1 MG/ML, 5ML ONE (15:12)
[2020-05-24] MEDS ORDERED: FENTANYL PF 100 MCG/2ML ONE (15:13)
[2020-05-24] MEDS ORDERED: LIDOCAINE-MPF 1%, 5ML ONE (15:13)
[2020-05-24] MEDS ORDERED: BIVALIRUDIN 250 MG ONE (15:13)
[2020-05-24] MEDS ORDERED: HEPARIN 1,000 UNITS/ML, 10ML ONE (15:13)
[2020-05-24] MEDS ORDERED: VERAPAMIL 2.5 MG/ML, 2ML ONE (15:13)
[2020-05-24] MEDS ORDERED: TICAGRELOR 90 MG TABLET ONE (15:13)
[2020-05-24] MEDS: SODIUM CHLORIDE 0.9% 1,000 ML IV SCH (17:18)
[2020-05-24] MEDS: HEPARIN 5,000 UNITS/ML, 1ML SQ SCH (21:17)
[2020-05-24] MEDS: ATORVASTATIN 40 MG TABLET PO SCH (21:17)
[2020-05-24 21:53] VITALS: BP 108/71
[2020-05-25] MEDS: SODIUM CHLORIDE 0.9% 1,000 ML IV SCH ×2 (00:42→08:27)
[2020-05-25 01:23] VITALS: BP 135/75
[2020-05-25] MEDS: ALBUTEROL-IPRATROPIUM MDI INH INH SCH ×2 (02:26→08:26)
[2020-05-25 05:57] VITALS: BP 132/75
[2020-05-25] MEDS: HEPARIN 5,000 UNITS/ML, 1ML SQ SCH (05:58)
[2020-05-25] MEDS: METOPROLOL TARTRATE 50 MG TAB PO SCH (05:58)
[2020-05-25] MEDS: OMEPRAZOLE 20 MG CAPSULE.DR PO SCH (05:58)
[2020-05-25 06:08] LABS: CHLORIDE 107 mmol/L (98-107)
[2020-05-25 06:15] LABS: ANION GAP 6 mmol/L (5-15); CALCIUM 8.3 mg/dL (8.5-10.1); CREATININE 1.55 mg/dL (0.7-1.3)
[2020-05-25 06:21] LABS: BASOPHILS # (AUTO) 0.03 x10^3/uL (0-0.1); BASOPHILS % (AUTO) 0 % (0-1); EOSINOPHILS # (AUTO) 0.16 x10^3/uL (0-0.4); EOSINOPHILS % (AUTO) 2 % (1-7); LYMPHOCYTES # (AUTO) 1.09 x10^3/uL (1-3.4); LYMPHOCYTES % (AUTO) 14 % (22-44); MD NO; MEAN CORPUSCULAR HEMOGLOBIN 28.1 pg (27.5-34.5); MEAN CORPUSCULAR VOLUME 87.6 fL (81-97); MEAN PLATELET VOLUME 9.2 fL (7.4-10.4); MONOCYTES # (AUTO) 0.67 x10^3/uL (0.2-0.8); MONOCYTES % (AUTO) 9 % (2-9); NEUTROPHILS % (AUTO) 75 % (42-75); PLATELET COUNT 185 x10^3/uL (130-400); RED BLOOD COUNT 4.12 x10^6/uL (4.38-5.82); RED CELL DISTRIBUTION WIDTH 17.6 % (9.4-14.8)
[2020-05-25 06:31] VITALS: BP 131/72
[2020-05-25] MEDS: CILOSTAZOL 100 MG TABLET PO SCH (08:20)
[2020-05-25] MEDS: CHOLECALCIFEROL 1,000 UNIT TABLET PO SCH (08:20)
[2020-05-25] MEDS: BUSPIRONE 5 MG TABLET PO SCH (08:20)
[2020-05-25] MEDS: DOXAZOSIN 2MG TABLET PO SCH (08:20)
[2020-05-25] MEDS: TAMSULOSIN 0.4 MG CAP.ER.24H PO SCH (08:20)
[2020-05-25] MEDS: POTASSIUM CHLORIDE 20 MEQ TAB.ER.PRT PO SCH (08:20)
[2020-05-25] MEDS: SENNA/DOCUSATE TABLET PO SCH (08:28)
[2020-05-25] MEDS: FLUNISOLIDE HOMETP SCH (08:33)
[2020-05-25] MEDS: FLUTICASONE FUROATE 100MCG/INH INH SCH (08:34)
[2020-05-25] MEDS ORDERED: FUROSEMIDE 80 MG TABLET PO SCH (09:00)
[2020-05-25] MEDS ORDERED: APIX2.5T PO (10:35)
[2020-05-25] MEDS ORDERED: METO50TA82 PO (10:35)
[2020-05-25] MEDS ORDERED: FURO80TA3 PO ×2 (10:35)
[2020-05-25] MEDS ORDERED: POTA20TA6 PO ×2 (10:35)
[2020-05-25] MEDS ORDERED: LISI-170 PO (10:35)
[2020-05-25] MEDS ORDERED: FURO40TA6 PO (11:43)
[2020-05-25] MEDS: FINASTERIDE 5 MG TABLET PO SCH (12:05)
[2020-05-25 13:43] VITALS: BP 112/67
[2020-05-25] MEDS ORDERED: FUROSEMIDE 40 MG TABLET PO SCH (17:00)
== END 2020-05-25 15:50 | disposition home or self-care (01) | DRG 286 ==
LOC: ED 14:28 → EDIP 15:09 → CCU 15:22 → 5SO 05-16 08:25 → CCU 05-16 14:42 → 5SO 05-18 15:48 → DCLOUNGE 05-25 15:30
PROVIDERS: ADMIT Internal Medicine; ATTEND Internal Medicine
PROC: 0T9B30Z Drainage of Bladder with Drainage Device, Percutaneous Approach (ICD-10-PCS; 2020-05-16)
PROC: 4A023N8 Measurement of Cardiac Sampling and Pressure, Bilateral, Percutaneous Approach (ICD-10-PCS; principal; 2020-05-24)
PROC: B2111ZZ Fluoroscopy of Multiple Coronary Arteries using Low Osmolar Contrast (ICD-10-PCS; 2020-05-24)
PROC: B2151ZZ Fluoroscopy of Left Heart using Low Osmolar Contrast (ICD-10-PCS; 2020-05-24)
DX: I48.92 Unspecified atrial flutter (principal); J96.01 Acute respiratory failure with hypoxia; E43 Unspecified severe protein-calorie malnutrition; I13.0 Hypertensive heart and chronic kidney disease with heart failure and stage 1 through stage 4 chronic kidney disease, or unspecified chronic kidney disease; D68.69 Other thrombophilia; N17.9 Acute kidney failure, unspecified; N13.8 Other obstructive and reflux uropathy; I50.20 Unspecified systolic (congestive) heart failure; N39.0 Urinary tract infection, site not specified; I47.1 Supraventricular tachycardia; I47.2 Ventricular tachycardia; N40.0 Benign prostatic hyperplasia without lower urinary tract symptoms; I25.10 Atherosclerotic heart disease of native coronary artery without angina pectoris; E55.9 Vitamin D deficiency, unspecified; J44.9 Chronic obstructive pulmonary disease, unspecified; K21.9 Gastro-esophageal reflux disease without esophagitis; I73.9 Peripheral vascular disease, unspecified; I48.91 Unspecified atrial fibrillation; Z99.81 Dependence on supplemental oxygen; E78.5 Hyperlipidemia, unspecified; K40.90 Unilateral inguinal hernia, without obstruction or gangrene, not specified as recurrent; K43.9 Ventral hernia without obstruction or gangrene; N18.9 Chronic kidney disease, unspecified; I27.20 Pulmonary hypertension, unspecified; N40.1 Benign prostatic hyperplasia with lower urinary tract symptoms; N05.9 Unspecified nephritic syndrome with unspecified morphologic changes; D64.9 Anemia, unspecified; I34.0 Nonrheumatic mitral (valve) insufficiency; B95.2 Enterococcus as the cause of diseases classified elsewhere; E87.6 Hypokalemia; I48.0 Paroxysmal atrial fibrillation; I42.8 Other cardiomyopathies; I49.3 Ventricular premature depolarization; T50.2X5A Adverse effect of carbonic-anhydrase inhibitors, benzothiadiazides and other diuretics, initial encounter; Z79.899 Other long term (current) drug therapy; Z86.73 Personal history of transient ischemic attack (TIA), and cerebral infarction without residual deficits; Z87.891 Personal history of nicotine dependence; Z93.6 Other artificial openings of urinary tract status; Z88.5 Allergy status to narcotic agent; Z88.1 Allergy status to other antibiotic agents; Z88.2 Allergy status to sulfonamides; Z68.24 Body mass index [BMI] 24.0-24.9, adult
CPT/HCPCS: 36415; 36600; 71045; 76770; 78452; 80048; 80053; 80069; 81001; 82040; 82306; 82436; 82570; 82728; 82803; 83540; 83550; 83735; 83880; 83970; 84100; 84133; 84156; 84300; 84443; 84484; 84550; 85025; 85520; 87077; 87081; 87086; 87186; 93005; 93017; 93306; 93460; 94640; 94660; 96365; 96366; 96375; 96376; 99156; 99157; 99292; C1769; C1894; G0378; J0153; J0583; J0696; J1644; J1650; J1940; J2250; J2785; J3010; J7060; J7626; P9047; A9502; J0282; J1205; J2920; J2930; J3475; J7030; Q0177; Q9967

== ENCOUNTER → 2020-07-29 | Day surgery (SDC) | payer MEDICARE, OTHER ==
[~2020-07-29] MED LIST changes: +APIX2.5T PO; +FURO40TA6 PO; +FURO80TA3 PO; +LISI-170 PO; +METO50TA82 PO; +POTA20TA6 PO
== END | disposition home or self-care (01) ==
LOC: RAD 06:40
PROVIDERS: ATTEND Physician Assistant
DX: N13.5 Crossing vessel and stricture of ureter without hydronephrosis (principal); F10.21 Alcohol dependence, in remission; Z79.899 Other long term (current) drug therapy; Z79.01 Long term (current) use of anticoagulants; Z88.1 Allergy status to other antibiotic agents; Z88.8 Allergy status to other drugs, medicaments and biological substances; Z87.891 Personal history of nicotine dependence
CPT/HCPCS: 50432; C1729; C1769

== ENCOUNTER 2020-08-26 19:25 | Emergency (ER) | payer MEDICARE, OTHER ==
[~2020-08-26] VITALS: Ht 175.3 cm; Wt 68.5 kg
[2020-08-26 19:28] VITALS: BP 158/85
--- NOTE | 2020-08-26 20:35 | NUR ---
ALL RESULTS ARE BACK AT THIS TIME. CHART UP FOR RECHECK.
--- NOTE | 2020-08-26 21:08 | NUR ---
SPLINT APPLIED TO LEFT PINKIE FINGER.
== END 2020-08-26 21:10 | disposition home or self-care (01) ==
LOC: ED 20:25
DX: S63.297A Dislocation of distal interphalangeal joint of left little finger, initial encounter (principal); I11.0 Hypertensive heart disease with heart failure; I50.9 Heart failure, unspecified; Z90.49 Acquired absence of other specified parts of digestive tract; Z87.891 Personal history of nicotine dependence; W18.30XA Fall on same level, unspecified, initial encounter; Y93.89 Activity, other specified; Y92.009 Unspecified place in unspecified non-institutional (private) residence as the place of occurrence of the external cause; Y99.8 Other external cause status
CPT/HCPCS: 26770; 99284